=== PATIENT | male | born 1960 | race Caucasian/White ===

== ENCOUNTER 2025-04-29 05:53 | Day surgery (SDC) | payer MEDICARE, SELFPAY ==
[2025-04-23 09:27] VITALS: BMI 29.0
[2025-04-23 13:04] VITALS: BMI 29.4
[2025-04-29 08:12] VITALS: BMI 30.1
[2025-04-29 08:13] VITALS: BP 134/78; PULSE 61; RESP 16; TEMP 36.8; O2SAT 97
--- OUTSIDE RECORDS SUMMARY | 2025-04-29 08:22 | XMS_ITS | Clinical Summary ---
Author Organization [facility] [address] Address [address] [place] [address] Phone Care Team Providers Care Cigarette Lighter Repairer Name Role Phone Angel Jenkins MD Unavailable Yasir Beaulieu Unavailable Unavail able Bj Perez MD Unavailable Allergies Active Allergy Reactions Criticality Noted Date Comments Celecoxib Hives Medium Medications benzonatate (TESSALON) 100 mg capsuleIndications :Cough Take 1-2 tablets 3 times a day as needed for cough. 60 capsule 1 09/20/19 23 Active Additional Information Patient not taking.Reported on 12/01/2022 atorvastatin (LIPITOR) 20 mg tabletIndications: Family history of heart disease,Multiple-t ype hyperlipidemia Take 1 tablet (20 mg total) by mouth daily 90 tablet 3 12/08/19 24 Active lisinopril-hydroCH LOROthiazide (ZESTORETIC) 10-12.5 mg per tabletIndications: Benign hypertension Take 1 tablet by mouth daily 90 tablet 3 12/08/19 24 Active tamsulosin (FLOMAX) 0.4 mg extended release capsuleIndications :BPH with urinary obstruction Take 2 capsules (0.8 mg total) by mouth daily 180 capsule 3 12/08/19 24 Active Active Problems Problem Noted Date Diagnosed Date Closed displaced fracture of right calcaneus Overview (06/03/2021): Fell off deck at work 08/19/20Accidental calcaneal fracture August 2020, jumped off a deck to save his life Settled with insurance on the work case 05/29/21. BACK TO FULL work schedule.02/2021 Dr. Dee repaired calcaneous Dry skin dermatitis 11/26/2020 BPH with urinary obstruction 09/20/2017 Family history of heart disease 01/19/2017 Multiple-type hyperlipidemia 01/19/2017 Prediabetes 07/17/2013 Benign hypertension 07/11/2012 Overview (11/11/2016): Hypertension Resolved Problems Problem Noted Date Diagnosed Date Resolved Date Elevated PSA, less than 10 ng/ml 07/17/2017 08/29/2018 Impacted cerumen 12/22/2013 01/19/2017 Overview (11/10/2016): Impacted cerumen of right ear Gastroesophageal reflux disease 07/11/2012 01/19/2017 Overview (11/10/2016): GERD (gastroesophageal reflux disease) Immunizations Immunization Administration Dates Next Due Influenza, Quadrivalent, Split, Intramuscular MMR 05/06/2006 Pfizer SARS-CoV-2 Monovalent Vaccination (12+ Yrs) PURPLE 11/25/2020,11/04/2020 Tdap 11/30/2021,07/12/2012 ZOSTER LIVE 11/03/2012 ZOSTER Recombinant 02/04/2024,11/12/2023 Surgical History Surgery Date Site/Laterality Comments TYMPANOSTOMY TUBE PLACEMENT Ear tubes INGUINAL HERNIA REPAIR Right COLONOSCOPY 04/08/2015 - 05/07/2015 (-) Dr. Beaulieu due in 10 years FRACTURE SURGERY 08/29/2020 Right COLONOSCOPY 03/24/2005 (-) Dr. Beaulieu single hyperplastic polyp Medical History Medical History Date Comments GERD (gastroesophageal reflux disease) Ear pressure Otitis media Tobacco abuse 4 pk yr quit 198 0 Diverticulosis 04/2005 Laceration of liver fell 25 feet off roof Concussion fell 25 ft off r debbie Diverticulosis 12/2016 ct Calcaneal fracture 08/19/2020 right Family History Medical History Relation Name Comments Heart disease Brother 2 Many Heart disease; Heart attack Brother 3 Myocardial infa rction; Brain cancer Father Brain tumor; Ca use of : Brain tumor COPD Mother Relation Name Status Comments Brother 1 Alive Brother 2 Many Alive Brother 3 Father (Age 7) Mother Social History Tobacco Use Types Packs/Day Years Used Date Smoking Tobacco: Former Cigarettes Q uit: 1979 Smokeless Tobacco: Never Alcohol Use Standard Drinks/Week Comments Yes 2 (1 standard drink = 0.6 oz pur e alcohol) PHQ-2 Answer Date Recorded PHQ-2 Total Score (If total score is 3 or more points, staff should administer the PHQ-9) 0 12/08/2023 Sex and Gender Information Value Date Recorded Sex Assigned at Not on file 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 Gender Identity Not on file Sexual Orientation Not on file Obstetrics History Last Filed Vital Signs Vital Sign Reading Time Taken Comments Blood Pressure 132/73 12/08/2023 8:27 AM CDT Mauri e Cuff Pulse 63 12/08/2023 8:24 AM CDT Temperature 36.4 C (97.5 F) 12/08/2023 8:24 AM CDT Respiratory Rate 20 12/08/2023 8:24 AM CDT Oxygen Saturation 96% 12/08/2023 8:24 AM CDT Inhaled Oxygen Concentration - - Weight 93.9 kg (207 lb) 12/08/2023 8:24 AM CDT Height 180.3 cm (5' 11) 12/08/2023 8:24 AM CDT Body Mass Index 28.87 12/08/2023 8:24 AM CDT Plan of Treatment Health Maintenance Due Date Last Done Comments Fall Risk Assessment 1959 Hepatitis B Screening 1977 Pneumococcal vaccine 65+ (1 of 1 - PCV) 2009 Abdominal Aortic Aneurysm (A AA) Screen 2024 12/25/2016 Depression Screening 12/07/2024 12/08/2023, 12/01/2022, 11/30/2021, Additional history exists Well Visit 65+ 12/07/2024 12/08/2023, 11/07, 11/30/2021, Additional history exists Covid-19 Vaccine (4 - 2024-2 6 season) 2025 08/29/2021, 11/25/2020, 11/04/2020 Influenza Vaccine (#1) 2025 07/16/2016 Colon Cancer Screening-Colonoscopy 04/18/2025 04/18/2015, 04/18/2015 Prostate Cancer Screening-PSA 11/27/2025, 11/22/2022, 11/23/2021, Additional history exists DTaP/Tdap/Td Vaccine (3 - Td or Tdap) 12/01/2031 11/30/2021, 07/12/2012 Colon Cancer Screening-CT Colonography Discontinued 04/18/2015, 04/18/2015 Colon Cancer Screening-DNA Stool Discontinued 04/18/20 15, 04/18/2015 Colon Cancer Screening-FIT Discontinued 04/18/2015, Colon Cancer Screening-Sigmoidoscopy Discontinued 04/18/2015, 04/18/2015 Hepatitis C Screening Completed 11/12/2019 Zoster Vaccine Completed 02/04/2024, 0401/2024, 11/03/2012 Procedures Procedure Name Priority Date/Time Associated Diagnosis Comments PSA SCREEN Routine 11/28/2023 6:39 AM CDT Annual physical exam Prostate cancer screening HEPATITIS C ANTIBODY Routine 11/12/2019 8:18 AM CDT Need for hepatitis C screening test COLONOSCOPY IMAGES 04/18/2015 from Last 3 Months or Most Recently Relevant to Health Maintenance Results * PSA screen (11/28/2023 6:39 AM CDT) [facility] PSA 0.79 < OR = 4.00 ng/mL [facility] Comment: The total PSA value from this assay system is standardized against the WHO standard. The test result will be approximately 20% lower when compared to the equimolar-standardized total PSA (Angel Jorge). Comparison of serial PSA results should be interpreted with this fact in mind. This test was performed using the Siemens chemiluminescent method. Values obtained from different assay methods cannot be used interchangeably. PSA levels, regardless of value, should not be interpreted as absolute evidence of the presence or absence of disease. Blood 11/28/2023 6:39 AM CDT 11/28/2023 6:41 AM CDT Narrative [facility] - 11/29/2023 2:33 PM CDT FASTING:YES FASTING: YES Prema Newsome MD LAB BLOOD ORDERABLES Final Result Performing Organization Address [facility] Co de Phone Number MAMIE Tavares [id number] [place] [address] * Hepatitis C antibody (11/12/2019 8:18 AM CDT) Hep C Ab NON-REACT MELANIE NON-REACT MELANIE [facility] [place] SIGNAL TO CUT-OFF 0.01 <1.00 [facility] [place] Comment: HCV antibody was non-reactive. There is no laboratory evidence of HCV infection. In most cases, no further action is required. However, if recent HCV exposure is suspected, a test for HCV RNA (test code 89981) is suggested. For additional information please refer to http://education.[employer]/faq/CFJ43c2 (This link is being provided for informational/ educational purposes only.) Blood specimen (specimen) 11/12/2019 8:18 AM CDT 11/12/2019 3:47 PM CDT Narrative Resulting Agency Comment Performing Organization Information: Site ID: [id number] Name: Mamie Tavares Address: [address] [place] [id number] Director: Otf Rodrigues D.O., MPH Prema Newsome MD LAB MICROBIOLOGY - GENERAL ORDERABLES Final Result Performing Organization Address [facility] de Phone Number MAMIE YANEZ - [facility] [place], [place] * COLONOSCOPY IMAGES (04/18/2015) Anatomical Region Laterality Modality Other Narrative 04/18/2015 Ordered by an unspecified provider. 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 [place] [address] Surgeon General Surgery 2/13/18 Yasir Beaulieu [address] [place] [address] Referring Physician Gastroenterology 08/29/18 Bj Perez MD [address] [place] [address] Orthopedic Surgery 11/26/20
--- OUTSIDE RECORDS SUMMARY | 2025-04-29 08:22 | XMS_ITS | Clinical Summary ---
Author Organization [facility] Address [address] [place] [address] Phone Care Team Providers Care Director Engineering Name Role Phone Prema Newsome MD Primary Care Provider [phone] Allergies Active Allergy Reactions Criticality Noted Date Comments Celecoxib Rash 12/25/2016 Medications HYDROcodone-acet aminophen (NORCO) 5-325 MG Tablet Take 1-2 Tabs by mouth every 4 hours as needed for Pain. 20 Tab 0 12/25/2016 Active Social History Tobacco Use Types Packs/Day Years Used Date Smoking Tobacco: Never Alcohol Use Standard Drinks/Week Comments Yes 12 (1 standard drink = 0.6 oz pu re alcohol) per week Sex and Gender Information Value Date Recorded Sex Assigned at Not on file Legal Sex Male 11:59 PM CDT Gender Identity Not on file Sexual Orientation Not on file Last Filed Vital Signs Vital Sign Reading Time Taken Comments Blood Pressure 114/64 12/25/2016 10:30 PM CDT Pulse 78 12/25/2016 10:30 PM CDT Temperature 36.9 C (98.5 F) 12/25/2016 10:49 PM CDT Respiratory Rate 16 12/25/2016 10:30 PM CDT Oxygen Saturation 100% 12/25/2016 10:30 PM CDT Inhaled Oxygen Concentration - - Weight 88.5 kg (195 lb) 12/25/2016 6:57 PM CDT Height 182.9 cm (6') 12/25/2016 6:57 PM CDT Body Mass Index 26.45 12/25/2016 6:57 PM CDT Plan of Treatment Health Maintenance Due Date Last Done Comments Hepatitis C Virus (HCV) Screening 1960 TdaP Immunization 1959 Cologuard 2004 Colonoscopy 2004 Colorectal Cancer Screening 2004 Immunochemical Fecal Occult Blood 2004 Pneumococcal Immunization (5 0+ years) (1 of 1 - PCV) 2009 Zoster Immunization (1 of 2) 2009 SARS-COV-2 Immunization (3 - season) 2024 11/25/2020, 11/04/2020 Influenza Immunization (#1) 2025 Respiratory Syncytial Virus (RSV) Immunization (Adult) (1 - 1-dose 75+ series) 2034 Hepatitis B Immunization Aged Out No longer eligible based on patient's age to complete this topic Human Papillomavirus (HPV) Immunization Aged Out No longer eligible b ased on patient's age to complete this topic Meningococcal Immunization (ACWY) Aged Out No longer eligible b ased on patient's age to complete this topic Rotavirus Immunization Aged Out No lo nger eligible based on patient's age to complete this topic Insurance [facility] Care Teams Director Engineering Relationship Specialty Start Date End Date Prema Newsome MD [address] [place] [id number] PCP - General Internal Medicine 12/25/16
--- OUTSIDE RECORDS SUMMARY | 2025-04-29 08:22 | XMS_ITS | Clinical Summary ---
Author Organization [facility] Address [address] [place] [address] Care Team Providers Care Parcel Post Carrier Name Role Phone Lexie Newsome MD Primary Care Provider [phone] Source Comments [facility] Affiliates and Associated Physician Practices is amultiple site organization consisting of ambulatory clinics and hospital sitesin [place], [place] and [place]. This disclosure is being madepursuant to the Care Everywhere program and may not contain all information available regarding this patient. 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 Gender Identity Not on file Sexual Orientation Not on file Plan of Treatment Health Maintenance Due Date Last Done Comments COLOGUARD (AGES 45-75) - COL ON CA SCREENING 1959 COLON MONITORING 1959 COLONOSCOPY - COLON CA SCREENING 1959 CT COLONOGRAPHY - COLON CA SCREENING 1959 Colorectal Cancer Screening 1959 FIT - COLON CA SCREENING 1959 FLEX SIG - COLON CA SCREENING 1959 LIPID TESTING 1959 HIV SCREENING 1974 HEPATITIS C SCREENING 09/11/1977 DTAP/TDAP/TD VACCINES (1 - Tdap) 1978 PNEUMOCOCCAL VACCINE 50+ (1 of 1 - PCV) 2009 ZOSTER VACCINE (1 of 2) 2009 DEPRESSION SCREENING 08/08/2024 COVID-19 VACCINE (2023-2 5 season) 2025 INFLUENZA VACCINE (#1) 2025 07/16/2016 Respiratory Syncytial Virus (RSV) Vaccine Pt: or over 60 yrs (1 - 1-dose 75+ series) 2034 HEPATITIS B VACCINE Aged Out No longe r eligible based on patient's age to complete this topic HIB VACCINE Aged Out No longer eligi ble based on patient's age to complete this topic HPV VACCINE Aged Out No longer eligi ble based on patient's age to complete this topic MENINGOCOCCAL (Group B) VACC INE SHARED DECISION-MAKING Aged Out No longer eligibl e based on patient's age to complete this topic MENINGOCOCCAL GROUPS A/C/Y/W VACCINE Aged Out No longer eligible b ased on patient's age to complete this topic Insurance [facility] Address: [facility] [id number] [place] [address] Care Teams Parcel Post Carrier Relationship Specialty Start Date End Date Lexie Newsome MD [address] [place] [address] [facility] - General 07/18/09
[2025-04-29] MEDS: LACTATED RINGERS 1,000 ML 150 ML IV CONT (08:28)
--- NOTE | 2025-04-29 09:09 | PM.IMHP ---
H&P: HPI History of Present Illness Date/Time: 04/29/25 09:09 Chief Complaint: screening colonoscopy Narrative: This is the patient's third colonoscopy. There are no GI symptoms and there is no family history of colorectal cancer. Review of Systems Review of Systems: All systems reviewed & are unremarkable except as noted in HPI and below [facility] Past Medical History Medical History (Updated 07/24/24 @ 16:45 by Hailee Chong APRN) Cerumen impaction Encounter for screening colonoscopy Calcaneal fracture BPH (benign prostatic hyperplasia) Hypertension Hyperlipidemia Surgical History Surgical History History of ear surgery History of hernia surgery Family History Family History Other Heart disease Hypertension Social History Social History Smoking status: Never smoker Alcohol intake: current Alcohol use details: social Substance use: never Substance use type: does not use Do You Feel Safe in your Home?: Yes Lack of Transportation: No Lack of Food: Never True Current Housing: I Have Housing Concerned About Future Housing: No Difficulty Paying Gas/Electric Bills: No Difficulty Paying for Meds: No Currently Unemployed: No Difficulty w/ Childcare or Family Care: No Living arrangements: with family Spiritual care concerns: No Meds Home Medications and Allergies Home Medications ?Medication ?Instructions ?Recorded ?Confirmed ?Type atorvastatin 20 mg tablet 20 mg PO DAILY #90 tabs 12/11/24 04/29/25 Rx lisinopril 10 1 tablet PO DAILY #90 tabs 12/11/24 04/29/25 Rx mg-hydrochlorothiazide 12.5 mg tablet tamsulosin 0.4 mg capsule 0.8 mg PO DAILY 04/23/25 04/29/25 History Allergies Allergy/AdvReac Type Severity Reaction Status Date / Time celecoxib Allergy Unknown Rash Verified 04/29/25 08:02 Vital Signs Vital Signs - 24 hr 04/29/25 08:13 Temperature 98.2 F Pulse Rate 61 Respiratory Rate 16 Blood Pressure 134/78 Pulse Oximetry 97 Oxygen Delivery Room Air Exam Const: General: cooperative and healthy appearing Resp: Effort & Inspection: normal respiratory effort and able to speak in complete sentences Auscultation: clear to auscultation bilaterally Cardio: Rate: regular rate Rhythm: regular rhythm GI: Inspection: normal to inspection GI Palp: No No hepatosplenomegaly present Auscultation: normal bowel sounds Rectal Exam: deferred Skin: General skin exam: normal color Psych: Appearance: grossly normal Mental Status: mental status grossly normal Assessment and Plan Assessment and plan (1) Encounter for screening colonoscopy: Code(s): Z12.11 - Encounter for screening for malignant neoplasm of colon Status: Acute Assessment and Plan: The patient is deemed a good candidate for the procedure. Consent signed. Will proceed.
--- NOTE | 2025-04-29 09:13 | WPDANESEPPF ---
Anes - Initial Pre Proc Eval Procedure: Operation Date: 04/29/25 07:30 Proposed Procedures p Screening Colonoscopy - Sunny Hampton MD Date/Time: 04/29/25 09:13 Surgeon: Sunny Hampton MD Pre Op Diagnosis: Encounter for screening for malignant neoplasm of Patient Data Age: 64 Gender: M Height: 1.78 m Weight: 95.2 kg Last Vital Signs Temp 98.2 F 04/29/25 08:13 Pulse 61 04/29/25 08:13 Resp 16 04/29/25 08:13 BP 134/78 04/29/25 08:13 Pulse Ox 97 04/29/25 08:13 O2 Del Method Room Air 04/29/25 08:13 Allergies Allergy/AdvReac Type Severity Reaction Status Date / Time celecoxib Allergy Unknown Rash Verified 04/29/25 08:02 Home Medications ?Medication ?Instructions ?Recorded ?Confirmed ?Type atorvastatin 20 mg tablet 20 mg PO DAILY #90 tabs 12/11/24 04/29/25 Rx lisinopril 10 1 tablet PO DAILY #90 tabs 12/11/24 04/29/25 Rx mg-hydrochlorothiazide 12.5 mg tablet tamsulosin 0.4 mg capsule 0.8 mg PO DAILY 04/23/25 04/29/25 History Patient hx anesthesia problems: none Family hx anesthesia problems: none Results Review: All pre-operative results and documents have been reviewed as part of the pre-operative evaluation. [facility] Past Medical History Medical History (Updated 07/24/24 @ 16:45 by Hailee Chong APRN) Cerumen impaction Encounter for screening colonoscopy Calcaneal fracture BPH (benign prostatic hyperplasia) Hypertension Hyperlipidemia Surgical History Surgical History History of ear surgery History of hernia surgery Family History Family History Other Heart disease Hypertension Social History Social History Smoking status: Never smoker Alcohol intake: current Alcohol use details: social Substance use: never Substance use type: does not use Do You Feel Safe in your Home?: Yes Lack of Transportation: No Lack of Food: Never True Current Housing: I Have Housing Concerned About Future Housing: No Difficulty Paying Gas/Electric Bills: No Difficulty Paying for Meds: No Currently Unemployed: No Difficulty w/ Childcare or Family Care: No Living arrangements: with family Spiritual care concerns: No Anes - Eval Final PreProcedure Day of Procedure 04/29/25 09:13 Heart: regular rate and rhythm Lungs: clear to auscultation Airway: Mallampati scale class II Neurological: alert and oriented Last oral intake: >/= 8 hours ASA classification: II Anesthetic plan: proceed Anesthesia type and monitoring: monitored anesthesia care Results Review: All pre-operative results and documents have been reviewed as part of the pre-operative evaluation. Informed Consent: The patient's anesthetic plan and its attendant risks and benefits were discussed with the patient/family/POA. Questions were solicited and answers provided to the satisfaction of the patient/family/POA.
--- NOTE | 2025-04-29 09:14 | WPDANESPN ---
Anes - Prog Note Post-Op Date/Time: 04/29/25 09:14 Vital Signs: Last Vital Signs Temp 98.2 F 04/29/25 08:13 Pulse 61 04/29/25 08:13 Resp 16 04/29/25 08:13 BP 134/78 04/29/25 08:13 Pulse Ox 97 04/29/25 08:13 O2 Del Method Room Air 04/29/25 08:13 Pain Score (VAS): no I/O: Intake & Output 04/28/25 04/29/25 04/29/25 23:59 07:59 15:59 Intake Total 300 Balance 300 Patient Feedback: Patient satisfied with anesthetic care.
[2025-04-29 09:37] VITALS: BP 109/71; PULSE 51; RESP 16; O2SAT 96
[2025-04-29 09:47] VITALS: BP 146/86; PULSE 51; RESP 16; O2SAT 96
[2025-04-29 09:57] VITALS: BP 152/86; PULSE 52; RESP 16; O2SAT 96
--- NOTE | 2025-04-29 10:04 | SUR.PHASEII ---
ready for discharge awaiting ride
== END 2025-04-29 10:10 | disposition home or self-care (01) ==
PROVIDERS: PCP Family Medicine; Referring Provider Internal Medicine Gastroenterology; Visit Provider Internal Medicine Gastroenterology
PROC: 0DJD8ZZ Inspection of Lower Intestinal Tract, Via Natural or Artificial Opening Endoscopic (ICD-10-PCS; CPT 45378; principal; 2025-04-29 07:30)
DX: Z12.11 Encounter for screening for malignant neoplasm of colon (principal); K57.30 Diverticulosis of large intestine without perforation or abscess without bleeding
CPT/HCPCS: G0121